=== PATIENT | female | born 1985 | race Caucasian/White ===

== ENCOUNTER → 2017-07-22 | Outpatient (CLI) | payer OTHER | LOC: M WUC 19:05 | DX: M79.645 Pain in left finger(s) (principal) | CPT/HCPCS: 73140 ==

== ENCOUNTER → 2024-02-08 | Outpatient (CLI) | payer OTHER ==
[~2024-02-08] MED LIST: PYRI200T2 PO
[2024-02-08 14:00] LABS: ALBUMIN 3.6 G/DL (3.2-5.2); ALKALINE PHOSPHATASE 58 U/L (46-116); ALT/SGPT 13 U/L (7.0-40); AST/SGOT 13 U/L (<34); BILIRUBIN,TOTAL 0.3 MG/DL (0.3-1.2); BLOOD UREA NITROGEN 8 MG/DL (9-23); CALCIUM LEVEL 8.9 MG/DL (8.5-10.1); CARBON DIOXIDE LEVEL 27 MMOL/L (20-31); CHLORIDE LEVEL 110 MMOL/L (98-107); CHOLESTEROL LEVEL 213 MG/DL (<200); CHOLESTEROL RISK RATIO 4.95 (<5); CREATININE FOR GFR 0.77 MG/DL (0.55-1.30); GLOMERULAR FILTRATION RATE > 60.0 (>60); GLUCOSE, FASTING 97 MG/DL (60-100); LDL CHOLESTEROL 142.6 MG/DL (<100); POTASSIUM SERUM 4.1 MMOL/L (3.5-5.1); SODIUM LEVEL 138 MMOL/L (136-145); TOTAL PROTEIN 6.5 G/DL (5.7-8.2); TRIGLYCERIDES LEVEL 137 MG/DL (<150)
[2024-02-08 14:05] LABS: BASO # 0.1 10^3/uL (0.0-0.2); BASO % 1.2 % (0.0-1.0); EOS # 0.2 10^3/uL (0.0-0.5); EOS % 2.8 % (0.0-3.0); HEMATOCRIT 43.2 % (36.0-47.0); HEMOGLOBIN 14.4 g/dl (12.0-15.5); LYMPH # 2.2 10^3/uL (1.5-5.0); LYMPH % 28.8 % (24.0-44.0); MEAN CORPUSCULAR HEMOGLOBIN 30.2 pg (27.0-33.0); MEAN CORPUSCULAR HGB CONC 33.3 g/dl (32.0-36.5); MEAN CORPUSCULAR VOLUME 90.6 fl (80.0-96.0); MONO # 0.7 10^3/uL (0.0-0.8); MONO % 9.3 % (2.0-8.0); NEUTROPHILS # 4.4 10^3/uL (1.5-8.5); NEUTROPHILS % 57.6 % (36.0-66.0); PLATELET COUNT, AUTOMATED 236 10^3/uL (150-450); RED BLOOD COUNT 4.77 10^6/uL (4.00-5.40); WHITE BLOOD COUNT 7.6 10^3/uL (4.0-10.0)
[2024-02-08 14:41] LABS: HEPATITIS C VIRUS ABY INDEX < 0.02 INDEX (<0.8)
== END ==
LOC: M WUC 09:19
PROVIDERS: ATTEND Nurse Practitioner Family
DX: Z00.00 Encounter for general adult medical examination without abnormal findings (principal); Z11.59 Encounter for screening for other viral diseases

== ENCOUNTER → 2024-02-15 | Outpatient (REF) | payer OTHER ==
[2024-02-17 16:47] LABS: HPV APTIMA Not Detected (Not Detected)
== END ==
LOC: M LAB REF 17:36
PROVIDERS: ATTEND Nurse Practitioner Family
DX: Z01.419 Encounter for gynecological examination (general) (routine) without abnormal findings (principal)

== ENCOUNTER → 2024-02-20 | Outpatient (CLI) | payer OTHER | LOC: M SOG 07:23 | PROVIDERS: ATTEND Orthopaedic Surgery | DX: M25.521 Pain in right elbow (principal); M25.531 Pain in right wrist; R93.6 Abnormal findings on diagnostic imaging of limbs ==

== ENCOUNTER 2024-05-14 06:02 | Day surgery (SDC) | payer OTHER ==
[~2024-05-14] VITALS: Ht 160 cm; Wt 71.5 kg
[~2024-05-14 06:02] MED LIST changes: +XALA0.007
[2024-05-14] MEDS ORDERED: LR 1,000 ML IV SCH (06:20)
[2024-05-14] MEDS ORDERED: LIDOCAINE 2% 100MG/5ML SDV (FOR ANES.) As Ordered ONE (07:19)
[2024-05-14] MEDS ORDERED: propofoL 200 MG/20 ML VIAL As Ordered ONE (07:19)
[2024-05-14] MEDS ORDERED: ONDANSETRON 4MG 2ML VIAL As Ordered ONE (07:19)
[2024-05-14] MEDS ORDERED: MIDAZOLAM INJ 2MG/2ML VIAL As Ordered ONE (07:19)
[2024-05-14] MEDS ORDERED: fentaNYL 100 MCG/2 ML INJECTION As Ordered ONE (07:20)
[2024-05-14] MEDS ORDERED: dexmedeTOMIDine (4MCG/ML)200MCG/50ML BTL (PRECEDEX) As Ordered ONE (07:25)
[2024-05-14] MEDS ORDERED: KETOROLAC 60MG 2ML VIAL As Ordered ONE (07:44)
[2024-05-14] MEDS ORDERED: ceFAZolin SOD 2 GM in IV 1 EA IV ONE (07:45)
[2024-05-14] MEDS: ceFAZolin 2 GM/D5W 50 ML IV BAG As Ordered ONE (08:03)
[2024-05-14] MEDS ORDERED: ACETAMINOPHEN 1000MG/100ML IV BAG As Ordered ONE (08:24)
[2024-05-14] MEDS ORDERED: PHENYLephrine 500MCG 5ML (100MCG/ML) SYRINGE As Ordered ONE (08:41)
[2024-05-14] MEDS ORDERED: ONDANSETRON 4MG 2ML VIAL IV PRN (09:05)
[2024-05-14] MEDS ORDERED: fentaNYL 100 MCG/2 ML INJECTION IV PRN (09:05)
[2024-05-14] MEDS ORDERED: oxyCODONE 5MG TAB PO PRN (09:05)
[2024-05-14] MEDS ORDERED: PERC5TAB12 PO (09:11)
[2024-05-14 09:55] VITALS: BP 128/77; TEMP 97.2; O2SAT 96
== END 2024-05-14 10:03 | disposition home or self-care (01) ==
LOC: M SDC 06:02
PROVIDERS: ATTEND Orthopaedic Surgery Hand Surgery
DX: G56.21 Lesion of ulnar nerve, right upper limb (principal); F17.210 Nicotine dependence, cigarettes, uncomplicated
CPT/HCPCS: 29999; J0131; J0665; J0690; J1100; J1885; J2250; J2371; J2405; J3010